=== PATIENT | male | born 1935 | race Caucasian/White ===

== ENCOUNTER → 2018-03-06 09:53 | Outpatient (CLI) | payer MEDICARE, OTHER, SELFPAY ==
--- NOTE | 2018-03-06 10:57 | DIET.PN ---
Met for initial nutrition consult per pt request Reports lost approx 9mo ago. Over last few years gained wt r/t changes in lifestyle. Has done food prep for years, so that did not change w/losing . Has started paying more attention to health and trying to improve. Wants to lose wt to gain better control of DM and other health issues. Has difficulty walking r/t PAD and pain in legs. Joined gym and working out there 3 times/week, in addition to working out on own on other days for 7 days/week total. Self monitors blood glucose. Reports levels are decreasing w/wt loss and increase exercise; AEB decreasing A1C Usual diet includes 2 meals plus small snack daily: Breakfast is either: scram egg sub, plain yogurt or oatmeal with berries and nuts Snack: piece of fruit, mostly melon Dinner: Seafood/steak/chicken with vegies. Vegies include a lot of non-starchy vegs, but does have regularly sweet potato and corn w/black beans blend. Admits Fritos are his downfall. 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 Has lost approx 12 lb for 1.5 lb/week, which is excellent especially at age of 82 yr. Current diet appears well balanced, moderate in carbs, low in sodium. INTERVENTION: Provided review of high carb foods for bg and calorie control; suggest tracking intake (already has a fitbit - just needs to figure out how to use the diet mode). Provided education on protein needs for wt resistence without excessive intake to avoid impact on CKD. GOAL/PLAN: Suggest pt continue current plan; perservere. Recommended protein intake (including protein supplement after workouts) 1.2g/kg of 92g daily. Continue to monitor labs. May call for F/U
== END ==
PROVIDERS: Family Provider Family Medicine; PCP Family Medicine; Visit Provider Family Medicine
DX: E66.9 Obesity, unspecified (principal); E11.9 Type 2 diabetes mellitus without complications; I10 Essential (primary) hypertension; I73.9 Peripheral vascular disease, unspecified; N18.9 Chronic kidney disease, unspecified
CPT/HCPCS: 97802

== ENCOUNTER → 2018-12-19 06:52 | Outpatient (CLI) | payer MEDICARE, OTHER, SELFPAY ==
--- NOTE | 2018-12-19 | DI.ECHO.S_ITS ---
[facility] +---------+ [facility] +---------+ : : [address] : [place] : : : : [id number] : : : : Phone: [phone] +---------+ Echocardiogram Report + + :Name: ALEJANDRA PENG Study Date: 12/19/2018 Height: 71 in : :[facility] Weight: 207 lb : : Gender: Male BSA: 2.1 m2 : :: 1935 Age: 83 yrs BP: 170/60 mmHg: :Reason For Study: Arrhythmia : : Performed By: Eli Silva : :Referring: DANA CHANG : + + Interpretation Summary -Indeterminate underlying rhythm, possibly sinus with PACs -Normal LV size and function without obvious wall motion abnormalities. -Normal RV size and function. -No significant valvular abnormalities. Comparison is made with the echocardiogram of 09-22-12. There is no significant change. Procedure: A two-dimensional transthoracic echocardiogram with color flow and Doppler was performed. The study quality was technically adequate. Comparison is made with the echocardiogram of 09-22-12. The heart rate ranged between 82-92 bpm during the study. Left Ventricle: The left ventricle is normal in size. Left ventricular wall thickness is at the upper limits of normal. The ejection fraction is estimated to be 60-65%. There are no obvious focal wall motion abnormalities noted but poor endocardial definition reduces the sensitivity for the detection of such. Diastolic parameters suggest a relaxation abnormality of the left ventricle, consistent with probable normal filling pressures. Right Ventricle: The right ventricle grossly appears normal in size with probable normal systolic function. Atria: The left atrium is moderately dilated. Right atrial size is normal. There is no Doppler evidence for an interatrial shunt. Mitral Valve: The mitral valve is grossly normal. There is mild to moderate mitral annular calcification. There is mild mitral regurgitation. Aortic Valve: The aortic valve is not well visualized. The aortic valve opens well. There is discrete nodular thickening of the non- coronary cusp. There is no aortic valve stenosis. There is trace aortic regurgitation. Tricuspid Valve: The tricuspid valve is normal in structure and function. There is trace tricuspid regurgitation. The right ventricular systolic pressure is estimated to be at least 27 mmHg based on an estimated right atrial pressure of 3 mm Hg. Pulmonic Valve: The pulmonic valve is not well seen, but is grossly normal. There is trace pulmonic regurgitation. Great Vessels: The aortic root is borderline dilated. The ascending aorta is mildly enlarged. The aortic arch could not be visualized. The IVC is of normal diameter and collapses greater than 50% with a sniff. This suggests a low right atrial pressure of 3 mm Hg. Pericardium/ Pleura There is no pericardial effusion. There has been no significant change since the previous study. MMode/2D Measurements & Calculations LVIDd: 5.6 cm Ao root diam: 3.7 cm LVIDs: 3.8 cm Aortic Jxn: 3.0 cm FS: 32.0 % asc Aorta Diam: 3.7 cm EPSS: 0.91 cm IVSd: 1.0 cm LVPWd: 1.1 cm LV stone. diameter/BSA (cm/m^2): 2.6 LV sys. diameter/BSA (cm/m^2): 1.8 LA dimension: 4.4 cm RA long axis: 5.2 cm LA A2 area: 29.2 cm2 RA area: 20.2 cm2 LA A4 area: 25.7 cm2 RA vol: 66.9 ml LA length (vol): 6.2 cm RA : 31.3 ml/m2 LA vol: 102.9 ml IVC diam: 1.5 cm LA vol index: 48.1 ml/m2 RVDd major: 5.7 cm RVD1 (basal): 3.9 cm RVD2 (mid): 2.9 cm Doppler Measurements & Calculations Ao V2 max: 141.1 cm/sec MV E max eduardo: 106.4 cm/sec Ao V2 mean: 97.8 cm/sec MV A max eduardo: 99.8 cm/sec Ao max P.0 mmHg MV E/A: 1.1 Ao mean P.4 mmHg Med Peak E' Eduardo: 4.5 cm/sec Ao V2 VTI: 32.0 cm E/E' med: 23.5 Lat Peak E' Eduardo: 6.9 cm/sec E/E' lat: 15.3 E/e' average: 19.4 MV dec time: 0.28 sec MR ERO: 0.13 cm2 TR max eduardo: 245.2 cm/sec MR flow rate: 63.7 cm3/sec TR max P.1 mmHg MR PISA radius: 0.51 cm PA V2 max: 105.1 cm/sec PA V2 mean: 70.4 cm/sec PA mean P.3 mmHg PA Accel Time: 0.21 sec Electronically signed by: Juan Motley M.D. on Reading Physician:12/20/2018 07:37 PM
== END ==
PROVIDERS: Family Provider Family Medicine; PCP Family Medicine; Visit Provider Family Medicine
DX: I34.0 Nonrheumatic mitral (valve) insufficiency (principal); I49.3 Ventricular premature depolarization
CPT/HCPCS: 93306

== ENCOUNTER 2019-02-11 10:00 | Outpatient (RCR) | payer MEDICARE, OTHER, SELFPAY | END 2019-02-24 11:57 | LOC: CAR 10:00 | PROVIDERS: Family Provider Family Medicine; PCP Family Medicine; Visit Provider Family Medicine | DX: I73.9 Peripheral vascular disease, unspecified (principal); I70.213 Atherosclerosis of native arteries of extremities with intermittent claudication, bilateral legs | CPT/HCPCS: 93668 ==

== ENCOUNTER → 2019-04-24 09:06 | Outpatient (CLI) | payer MEDICARE, OTHER, SELFPAY ==
--- NOTE | 2019-04-24 | DI.ECHO.S_ITS ---
[facility] +---------+ [facility] +---------+ : : [address] : [place] : : : : [id number] : : : : Phone: [phone] : : [phone] +---------+ Echocardiogram Report + + :Name: ALEJANDRA PENG Study Date: 04/24/2019 Height: 70 in : :[facility] Exam Location: [facility] Weight: 211 lb : : Gender: Male BSA: 2.1 m2 : :: 1935 Age: 83 yrs BP: 112/64 mmHg: :Reason For Study: VTACH : : Performed By: Jamar Ramirez : :Referring: PARAG GRIMM : + + Interpretation Summary 1) Normal left ventricular size with mildly-moderately reduced systolic function (EF 40-45%). 2) Global hypokinesis present. 3) Normal right ventricular size and function. 4) The left atrium is severely dilated. 5) There is mild to moderate mitral regurgitation. 6) Compared to the Echo done 12/19/2018, LVEF is reduced on this study as above. Procedure: A two-dimensional transthoracic echocardiogram with color flow and Doppler was performed. The study quality was technically adequate. Comparison is made with the echocardiogram of 12/19/18. The patient was in normal sinus rhythm during the exam. The patient had frequent PACs during the exam. Left Ventricle: The left ventricle is normal in size. There is normal left ventricular wall thickness. The ejection fraction is estimated to be 40-45%. Left ventricular systolic function is mild to moderately reduced. There is mild to moderate global hypokinesis of the left ventricle. Right Ventricle: The right ventricle is normal in size and function. Atria: The left atrium is severely dilated. Right atrial size is normal. The interatrial septum is intact with no evidence for an atrial septal defect. Mitral Valve: There is mild mitral annular calcification. The mitral valve leaflets are mildly calcified. There is mild to moderate mitral regurgitation. Aortic Valve: The aortic valve is trileaflet. The aortic valve is slightly calcified. There is no aortic valve stenosis. There is mild aortic regurgitation. Tricuspid Valve: The tricuspid valve is normal in structure and function. There is trace tricuspid regurgitation. Pulmonary artery pressures cannot be estimated because of the lack of a measurable TR jet velocity. Pulmonic Valve: The pulmonic valve is normal in structure and function. There is trace pulmonic regurgitation. Great Vessels: The aortic root is normal size. The dimensions of the ascending aorta are normal. The pulmonary artery is normal size. The IVC is of normal diameter and collapses greater than 50% with a sniff. This suggests a low right atrial pressure of 3 mm Hg. Pericardium/ Pleura There is no pericardial effusion. There is a moderate right-sided pleural effusion. MMode/2D Measurements & Calculations LVIDd: 5.1 cm LVOT diam: 2.3 cm LVIDs: 4.0 cm Ao root diam: 3.6 cm FS: 21.9 % Aortic Jxn: 2.7 cm EPSS: 1.4 cm asc Aorta Diam: 3.4 cm IVSd: 1.1 cm LVPWd: 1.1 cm LV stone. diameter/BSA (cm/m^2): 2.4 LV sys. diameter/BSA (cm/m^2): 1.9 LA A2 area: 27.0 cm2 RA long axis: 4.7 cm LA A4 area: 26.7 cm2 RA area: 19.3 cm2 LA length (vol): 5.6 cm RA vol: 67.1 ml LA vol: 109.4 ml RA : 31.4 ml/m2 LA vol index: 51.2 ml/m2 IVC diam: 2.0 cm Doppler Measurements & Calculations Ao V2 max: 116.1 cm/sec LVOT Max Eduardo: 79.5 cm/sec Ao V2 mean: 92.3 cm/sec LV V1 max P.5 mmHg Ao max P.4 mmHg LV V1 VTI: 17.0 cm Ao mean P.5 mmHg MORENA(I,D): 2.5 cm2 Ao V2 VTI: 27.7 cm MORENA(V,D): 2.8 cm2 sev ratio: 0.61 MORENA indexed to BSA (cm^2/m^2): 1.2 MV E max eduardo: 109.9 cm/sec PA V2 max: 85.7 cm/sec MV A max eduardo: 78.1 cm/sec PA V2 mean: 67.8 cm/sec MV E/A: 1.4 PA mean P.8 mmHg Med Peak E' Eduardo: 4.3 cm/sec PA pr(Accel): 49.1 mmHg E/E' med: 25.3 PA Accel Time: 0.07 sec Lat Peak E' Eduardo: 6.6 cm/sec E/E' lat: 16.6 E/e' average: 21.0 MV dec time: 0.14 sec SV(LVOT): 69.4 ml Reading Physician:12:53 PM
--- NOTE | 2019-04-24 | DI.NM.S_ITS ---
PROCEDURE: NM REUBEN PERF SPECT REST & STR Rest and exercise myocardial perfusion SPECT with gated imaging and ejection fraction RADIOPHARMACEUTICAL: 10.6 mCi Tc-99m sestamibi IV at rest and 24.6 mCi Tc-99m sestamibi IV at peak exercise. A one day-protocol was performed. INDICATIONS: Ventricular Tachycardia TECHNIQUE: Radiopharmaceutical was injected at peak stress test, and also at rest. SPECT images were obtained. SPECT myocardial perfusion images were displayed in short axis, horizontal long axis, and vertical long axis views. Gated images were reviewed using [employer] software. COMPARISON: None. CARDIAC STRESS: A standard [place] treadmill exercise tolerance test was performed by the patient under the supervision of an attending staff. The patient exercised for 3 minutes and 5 seconds; functional aerobic impairment (ABRAHAM) is +30% on sedentary scale. Hemodynamic data: There is normal blood pressure and heart rate response to exercise stress. Patient achieved 136% of maximum predicted heart rate at peak exercise. Symptoms: Patient denied chest pain during exercise. Dyspnea with exercise, especially with atrial tachcyardia. EKG: Sinus rhythm with mild ST depressions in the inferior leads at rest. No diagnostic EKG changes of ischemia with exercise. Frequent PACs including atrial tachycardia at peak exercise and during recovery. FINDINGS: Raw data: There is good myocardial labeling by radiotracer. No significant motion artifacts. Illi-qh-pjgds ratio is 0.34 (normal is less than 0.38 for sestamibi tracer, and less than 0.50 for thallium tracer). Left ventricle function: Gated images demonstrate global hypokineiss. No transient ischemic dilation; TID is 1.2 (normal less than 1.3). The left ventricle resting end-diastolic volume is 188 mL. Left ventricle stress ejection fraction is 39%; normal values are above 45%. Myocardial perfusion: There is fixed inferior wall defect that could be prior non-transmural infarction or diaphragmatic attenuation. Small mildly intense reversible defect at the apex that is consistent with ischemia. No prone images done. IMPRESSION: Abnormal nuclear stress test consistent with apical ischemia and infarct vs artifact in the inferior wall. 1) There is fixed inferior wall defect that could be prior non-transmural infarction or diaphragmatic attenuation. Small mildly intense reversible defect at the apex that is consistent with ischemia. No prone images done. SSS 2. SRS 0. 2) Enlarged left ventricle (rest EDV 188cc) with moderately reduced function (EF post stres 39%). Global hypokinesis present. 3) No angina during the study. Dyspnea noted with atrial tachcyardia. 4) No diagnostic ECG evidence of ischemia. Frequent PACs including atrial tachycardia at peak exercise and during recovery. 5) Reduce exercise tolerance (4.6 METs, ABRAHAM +30% on sedentary scale). Target heart rate achieved. 6) Hypertension at rest (BP 160/80mmHg). 7) No prior nuclear stress test available for comparison Dictated by: Emelia Grimm MD on 04/24/2019 at 16:09 Approved by: Emelia Grimm MD on 04/24/2019 at 16:16
--- NOTE | 2019-04-24 15:00 | PM.TREADMILL ---
Cardiac Stress Test Report Referral & Results Date Patient Seen: 04/24/19 Requesting provider: Emelia Grimm Indication: Nonsustained ventricular tachycardia SVT Rest ECG: Unremarkable Procedure Note: Today following both written and verbal informed consent the patient was exercised according to a standard [place] protocol patient went for a total of 3 minutes 5 seconds achieving a maximum heart rate of 185 (during a run of SVT) maximum systolic blood pressure of 180. This is approximately 4.6 METS. Exercise was terminated at this point because of targets were met. Patient was also given Cardiolite through a previously started Hep-Lock IV by the diagnostic imaging staff approximately 1 minute prior to the cessation of exercise. There are no ST-T segment changes Functional aerobic impairment rated about 30% of the sedentary scale In recovery patient went into supraventricular tachycardia with heart rate of about 180 over and over and over and over again. Was able to abort with Valsalva maneuver and eventually as underlying sinus heart rate reduced this gradually disappeared He was dyspneic with his SVT but otherwise asymptomatic Occasional PVC noted as well Impression: SVT No evidence of ischemia Please see perfusion imaging for further details regarding possible ischemia Please note: Actual ECG tracings can be found in the PACS system.
== END ==
PROVIDERS: Family Provider Family Medicine; PCP Family Medicine; Visit Provider Internal Medicine Cardiovascular Disease
DX: I47.2 Ventricular tachycardia (principal); I10 Essential (primary) hypertension
CPT/HCPCS: 78452; 93016; 93017; 93018; 93306; A9502

== ENCOUNTER → 2019-05-01 10:26 | Outpatient (CLI) | payer MEDICARE, OTHER, SELFPAY ==
--- NOTE | 2019-05-01 | DI.RAD.S_ITS ---
PROCEDURE: XR CHEST 2V INDICATIONS: SHORTNESS OF BREATH TECHNIQUE: 2 views of the chest were acquired. COMPARISON: [facility], , CHEST 2 VIEW, 04/04/2016, 9:51. FINDINGS: Surgical changes and devices: None. Lungs and pleura: Lungs are moderately edematous. There are bilateral subpulmonic pleural effusions and no pneumothorax. Mediastinum: Mediastinal contours are normal. Heart size is at upper limits of normal. Bones and chest wall: No suspicious bony abnormalities. Soft tissues appear unremarkable. IMPRESSION: Generalized moderate pulmonary edema, bilateral small to moderate-sized subpulmonic pleural effusions slightly greater on the right than the left. Dictated by: Jin Solomon M.D. on 05/01/2019 at 11:08 Approved by: Jin Solomon M.D. on 05/01/2019 at 11:09
== END ==
PROVIDERS: PCP Family Medicine; Visit Provider Family Medicine
DX: R06.02 Shortness of breath (principal); J81.1 Chronic pulmonary edema; J90 Pleural effusion, not elsewhere classified
CPT/HCPCS: 71046

== ENCOUNTER → 2019-05-22 09:04 | Outpatient (CLI) | payer MEDICARE, OTHER, SELFPAY ==
--- NOTE | 2019-06-01 11:16 | PM.PFT.1 ---
Pulmonary Function Test Referral & Results Date Patient Seen: 05/22/19 Requesting provider: Alee Castillo Indication: Shortness of breath Results: The spirometry demonstrates an FVC of 2.08 L which is 49% of predicted. The FEV1 was measured at 1.57 L which is 53% of predicted. The FEV1/FVC ratio was 76 which is 106% of predicted. Following the administration of bronchodilator there was 11% improvement in FEV1 and a 69% improvement in FEF 25-75%. Lung volumes show an SVC of 2.23 L which is 48% of predicted. The diffusing capacity was measured at 15.5 a which is 44% of predicted. The maximum voluntary ventilation was reduced Interpretation: This study demonstrates severe obstructive lung disease with evidence of some benefit following bronchodilator particularly small airway flow based on improvement in FEF 25-75% There is also severe restrictive lung disease present based on significant reduction in SVC There is also severe reduction in diffusing capacity suggesting significant disease at the capillary alveolar level
== END ==
PROVIDERS: PCP Family Medicine; Visit Provider Family Medicine
DX: R06.02 Shortness of breath (principal); J44.9 Chronic obstructive pulmonary disease, unspecified
CPT/HCPCS: 94060; 94726; 94729

== ENCOUNTER → 2019-11-13 09:16 | Outpatient (CLI) | payer MEDICARE, OTHER, SELFPAY ==
--- NOTE | 2019-11-13 | DI.RAD.S_ITS ---
PROCEDURE: XR CHEST 2V INDICATIONS: Shortness of breath TECHNIQUE: 2 views of the chest were acquired. COMPARISON: [facility], , XR CHEST 2V, 05/01/2019, 10:31. [facility], , CHEST 2 VIEW, 04/04/2016, 9:51. FINDINGS: Surgical changes and devices: None. Lungs and pleura: Lungs are abnormal, with a pneumonia pattern of the right lung base, and a small subpulmonic pleural effusion. No pneumothorax. Mediastinum: Mediastinal contours are normal. Heart size is normal. Bones and chest wall: No suspicious bony abnormalities. Soft tissues appear unremarkable. IMPRESSION: Right lower lobe pneumonia with a subpulmonic right pleural effusion. Large lung volumes, suspect COPD. Dictated by: Jin Solomon M.D. on 11/13/2019 at 9:52 Approved by: Jin Solomon M.D. on 11/13/2019 at 9:53
== END ==
PROVIDERS: PCP Family Medicine; Referring Provider Family Medicine; Visit Provider Family Medicine
DX: J18.9 Pneumonia, unspecified organism (principal); J90 Pleural effusion, not elsewhere classified; R06.02 Shortness of breath
CPT/HCPCS: 71046

== ENCOUNTER → 2020-01-22 12:22 | Outpatient (CLI) | payer MEDICARE, OTHER, SELFPAY ==
--- NOTE | 2020-01-22 | DI.RAD.S_ITS ---
PROCEDURE: XR CHEST 2V INDICATIONS: SHORTNESS OF BREATH,CARDIOMYOPATHY TECHNIQUE: 2 views of the chest were acquired. COMPARISON: [facility], CR, XR CHEST 2V, 11/13/2019, 8:18. [facility], CR, XR CHEST 2V, 05/01/2019, 10:31. FINDINGS: Surgical changes and devices: None. Lungs and pleura: Lungs are again seen to be abnormal with a mild pulmonary edema pattern. No increase in right subpulmonic pleural effusion, very slight left-sided pleural effusion appears present on the lateral view. Mediastinum: Mediastinal contours are normal. Heart size is mildly enlarged. Bones and chest wall: No suspicious bony abnormalities. Soft tissues appear unremarkable. IMPRESSION: Mild cardiomegaly, mild chronic CHF. Subpulmonic right pleural effusion is mild to moderate, slight left subpulmonic pleural effusion is noted. Mild cardiomegaly. Dictated by: Jin Solomon M.D. on 01/22/2020 at 14:25 Approved by: Jin Solomon M.D. on 01/22/2020 at 14:27
== END ==
PROVIDERS: PCP Family Medicine; Referring Provider Family Medicine; Visit Provider Family Medicine
DX: R06.02 Shortness of breath (principal); I42.9 Cardiomyopathy, unspecified; I50.9 Heart failure, unspecified
CPT/HCPCS: 71046

== ENCOUNTER → 2020-02-01 14:40 | Outpatient (CLI) | payer MEDICARE, OTHER, SELFPAY ==
--- NOTE | 2020-02-01 | DI.ECHO.S_ITS ---
[facility] +---------+ [facility] +---------+ : : [address] : [place] : : : : [phone] : : : : Phone: [phone] : : [phone] +---------+ Echocardiogram Report + + :Name: ALEJANDRA PENG Study Date: 02/01/2020 Height: 71 in : :[facility] Weight: 200 lb : : Gender: Male BSA: 2.1 m2 : :: 1935 Age: 84 yrs BP: 122/58 mmHg: :Reason For Study: Cardiomyopathy : :Ordering Physician: Parag Amor : :Sirisha Performed By: Debora Villegas : :Referring: PARAG GRIMM : + + Interpretation Summary 1) Normal left ventricular size with mildly reduced systolic function (EF 45- 50%). 2) Global hypokinesis present. 3) Mildly enlarged right ventricle with normal function. 4) The left atrium is severely dilated. 5) There is mild to moderate mitral regurgitation. 6) Compared to the Echo done 04/24/2019, LVEF has improved slightly from 40-45% to 45-50% on this study. Procedure: A two-dimensional transthoracic echocardiogram with color flow and Doppler was performed. The study quality was technically adequate. Comparison is made with the echocardiogram of 04/24/2019. The patient was in normal sinus rhythm during the exam. The patient had frequent PACs during the exam. The patient had occasional PVCs during the exam. Left Ventricle: The left ventricle is normal in size. There is mild-moderate concentric left ventricular hypertrophy. Left ventricular global longitudinal strain average is -15.3%. The ejection fraction is estimated to be 45-50%. Left ventricular systolic function is mildly reduced. There is mild global hypokinesis of the left ventricle. Right Ventricle: The right ventricle is mildly dilated. The right ventricular systolic function is normal. Atria: The left atrium is moderately dilated. The right atrium is normal in size. There is no Doppler evidence for an interatrial shunt. Mitral Valve: The mitral valve is normal in structure and function. There is mild mitral annular calcification. There is mild to moderate mitral regurgitation. Aortic Valve: The aortic valve is trileaflet. The aortic valve opens well. There is no aortic valve stenosis. There is trace aortic regurgitation. Tricuspid Valve: The tricuspid valve is normal in structure and function. There is mild tricuspid regurgitation. Pulmonic Valve: The pulmonic valve is not well visualized. The pulmonic valve is not well seen, but is grossly normal. There is trace pulmonic regurgitation. Great Vessels: The aortic root is normal size. The dimensions of the ascending aorta are normal. The IVC is of normal diameter and collapses greater than 50% with a sniff. This suggests a low right atrial pressure of 3 mm Hg. Pericardium/ Pleura There is no pericardial effusion. There is no pleural effusion. MMode/2D Measurements & Calculations LVIDd: 5.3 cm LVOT diam: 2.0 cm LVIDs: 4.1 cm Ao root diam: 3.5 cm FS: 22.6 % asc Aorta Diam: 3.1 cm EPSS: 1.4 cm IVSd: 1.3 cm LVPWd: 1.4 cm LV stone. diameter/BSA (cm/m^2): 2.5 LV sys. diameter/BSA (cm/m^2): 2.0 LA A2 area: 27.8 cm2 RA long axis: 4.8 cm LA A4 area: 21.3 cm2 RA area: 17.8 cm2 LA length (vol): 5.2 cm RA vol: 55.4 ml LA vol: 96.3 ml RA : 26.3 ml/m2 LA vol index: 45.7 ml/m2 IVC diam: 1.3 cm RVD1 (basal): 4.5 cm TAPSE: 2.1 cm Doppler Measurements & Calculations Ao V2 max: 122.9 cm/sec LVOT Max Eduardo: 78.9 cm/sec Ao V2 mean: 89.7 cm/sec LV V1 max P.5 mmHg Ao max P.0 mmHg LV V1 VTI: 20.6 cm Ao mean P.5 mmHg MORENA(V,D): 2.0 cm2 MV E max eduardo: 94.3 cm/sec TR max eduardo: 297.5 cm/sec MV A max eduardo: 85.6 cm/sec TR max P.4 mmHg MV E/A: 1.1 Med Peak E' Eduardo: 5.0 cm/sec E/E' med: 18.8 Lat Peak E' Eduardo: 7.5 cm/sec E/E' lat: 12.6 E/e' average: 15.7 MV dec time: 0.24 sec MR ERO: 0.23 cm2 MR PISA: 3.0 cm2 SV(LVOT): 63.5 ml MR flow rate: 128.0 cm3/sec MR PISA radius: 0.70 cm Reading Physician:02:07 PM
[2020-02-02 11:06] LABS: COVID19 Sendout Not Detected (Not Detect)
== END ==
PROVIDERS: Registered Nurse; PCP Family Medicine; Referring Provider Internal Medicine Cardiovascular Disease; Visit Provider Internal Medicine Cardiovascular Disease
DX: Z11.59 Encounter for screening for other viral diseases (principal); Z01.812 Encounter for preprocedural laboratory examination; I08.1 Rheumatic disorders of both mitral and tricuspid valves; I42.8 Other cardiomyopathies
CPT/HCPCS: 87635; 93306

== ENCOUNTER → 2020-02-04 09:56 | Outpatient (CLI) | payer MEDICARE, OTHER, SELFPAY ==
--- NOTE | 2020-02-12 16:16 | PM.PFT.1 ---
Pulmonary Function Test Referral & Results Date Patient Seen: 02/04/20 Requesting provider: Alee Castillo Results: The spirometry demonstrates an FVC of 1.33 L which is 31% of predicted. The FEV1 was measured at 1.05 L which is 36% of predicted. The FEV1/FVC ratio was 80 which is 112% of predicted. Following the administration of bronchodilator there was a 50% improvement in FEV1 and a 92% improvement in FEF 25-75%. Lung volumes show an SVC of 4.65 L which is 100% of predicted. The diffusing capacity was measured at 10.83 which is 30% of predicted. No hemoglobin value was provided, so no correction for potential anemia could be made, if appropriate. The maximum voluntary ventilation was reduced Interpretation: This study demonstrates severe obstructive lung disease based on severe reduction in FEV1. There is evidence of some benefit following bronchodilator based on improvement in FEV1 and FEF 25-75% Patient's lung volumes are normal There is also severe reduction in diffusing capacity suggesting significant disease at the capillary alveolar level to the point where patient may well be hypoxic at times on room air Compared to PFTs performed in May 2019, current study shows further reduction in FEV1 as well as diffusing capacity. Patient's lung volumes on previous examination were approximately 50% of normal and 100% normal on this exam which is difficult to explain Clinical correlation suggested
== END ==
PROVIDERS: PCP Family Medicine; Referring Provider Family Medicine; Visit Provider Family Medicine
DX: J44.9 Chronic obstructive pulmonary disease, unspecified (principal); R06.02 Shortness of breath; Z87.891 Personal history of nicotine dependence
CPT/HCPCS: 94060; 94664; 94726; 94729

== ENCOUNTER → 2020-03-06 09:03 | Outpatient (CLI) | payer MEDICARE, OTHER, SELFPAY ==
[2020-03-07 08:40] LABS: COVID19 Sendout Not detected (Not Detect)
== END ==
PROVIDERS: PCP Family Medicine; Visit Provider Nurse Practitioner
DX: Z01.812 Encounter for preprocedural laboratory examination (principal)
CPT/HCPCS: 87635

== ENCOUNTER 2020-03-17 15:06 | Emergency (ER) | payer MEDICARE, OTHER, SELFPAY ==
[2020-03-17] VITALS (14 sets, daily range): BP systolic 93–112; BP diastolic 57–79; PULSE 132–137; RESP 0–28; TEMP 36.1; O2SAT 93–99; BMI 25.7
--- NOTE | 2020-03-17 15:26 | DI.RAD.S_ITS ---
PROCEDURE: XR CHEST 1V INDICATIONS: SOB TECHNIQUE: One view of the chest was acquired. COMPARISON: [facility], CR, XR CHEST 2V, 01/22/2020, 12:48. [facility], CR, XR CHEST 2V, 11/13/2019, 8:18. FINDINGS: Surgical changes and devices: None. Lungs and pleura: Lungs are abnormal, with generalized pulmonary edema that is more prominent than that seen in December of this year and also october.. No pleural effusions or pneumothorax. Mediastinum: Mediastinal contours appear normal. Heart size is locally enlarged, and there appears to be bilateral subpulmonic pleural effusions greater on the right than the left.. Bones and chest wall: No suspicious bony lesions. Overlying soft tissues appear unremarkable. IMPRESSION: Acute exacerbation of chronic CHF, bilateral probable subpulmonic pleural effusions. Right greater than left airspace opacification is present and as result focal pneumonia could be present at the right mid and lower lung. Dictated by: Jin Solomon M.D. on 03/17/2020 at 16:07 Approved by: Jin Solomon M.D. on 03/17/2020 at 16:09
[2020-03-17 15:32] LABS: Add Manual Diff / Slide Review NO; Basophils Absolute Auto 0 /uL (0-100); Basophils Percent Auto 0.8 % (0-2); Eosinophils Absolute Auto 100 /uL (0-450); Eosinophils Percent Auto 1.7 % (2-4); Hematocrit 29.8 % (41-53); Hemoglobin 9.4 g/dL (13.5-17.5); Lymphocytes Absolute Auto 800 /uL (1100-4500); Lymphocytes Percent Auto 13.4 % (25-40); Mean Corpuscular HGB Conc 31.5 % (30-36); Mean Corpuscular Hemoglobin 26.9 PG (26-34); Mean Corpuscular Volume 85.4 fL (80-100); Monocytes Absolute Auto 600 /uL (0-900); Monocytes Percent Auto 9.4 % (3-14); Neutrophils Absolute Auto 4500 /uL (1500-7000); Neutrophils Percent Auto 74.7 % (50-75); Platelet Count 217 X10^3/uL (150-400); Red Blood Cell Count 3.48 X10^6/uL (4.5-5.9); Red Cell Distribution Width 15.7 % (11.6-14.8)
[2020-03-17 15:33] LABS: INR 1.1 (0.9-1.3); Prothrombin Time 13.1 SECONDS (10.1-12.7)
[2020-03-17 15:36] LABS: PTT Partial Thromboplastin Tim 31 SECONDS (26.4-36.2)
[2020-03-17 15:43] LABS: Alanine Aminotransferase 25 IU/L (<50); Albumin 3.2 g/dL (3.5-5.0); Albumin Globulin Ratio 1.2 (1.0-2.8); Alkaline Phosphatase 84 U/L (38-126); Aspartate Aminotransferase 38 IU/L (17-59); BUN Creatinine Ratio 30.5 (6-22); Bilirubin Total 0.4 mg/dL (0.2-1.3); Blood Urea Nitrogen 67 mg/dL (9-20); Calcium 8.9 mg/dL (8.4-10.2); Carbon Dioxide 26 mmol/L (22-32); Chloride 105 mmol/L (98-107); Creatine Kinase 88 U/L (55-170); Estimated Glomerular Filt Rate 28.6 mL/min (>60); Globulin 2.7 g/dL (1.7-4.1); Glucose 150 mg/dL (80-110); HEMOLYSIS < 15 (0-50); Lipase 17 U/L (23-300); Sodium 138 mmol/L (137-145); Total Protein 5.9 g/dL (6.3-8.2)
[2020-03-17 15:54] LABS: NT-proBNP (BNP-Adult 18+) 10900 pg/mL (<450)
--- NOTE | 2020-03-17 15:55 | ED.GENADULT ---
HPI - General Adult General Chief complaint: Shortness of Breath/Dyspnea Stated complaint: Have a Breathing Problem and a Heart Problem Time Seen by Provider: 03/17/20 15:16 Source: patient Mode of arrival: Wheelchair Limitations: physical limitation History of Present Illness HPI narrative: 84-year-old male who arrives the emergency department by private vehicle for evaluation of a worsening shortness of breath. Patient states that last week he was sent to the [facility] for high risk cardiac catheterization. He did have 3 stents placed. He was discharged on of last week. He states he does not remember any prior diagnosis of heart failure. He is on Lasix. He is unsure if he is on 20 mg a day or 40 mg a day. He states that since he has been discharged from the hospital he has had progressively worsening shortness of breath. He denies any chest pain. He states that he has never had any chest pain. He is having lower extremity swelling. He states the reason he is here is because over the past 4 nights he has not got any sleep because he cannot lay flat and is waking up gasping for air. He also states that he has been checking his pulse rate at home. He states that his pulse rate has been anywhere from 115 up into the 180s. He states that most that time his heart rate has been in the 130's. During this time he denies any palpitations or shortness of breath or lightheadedness. He states that he has been taking the medications that he was instructed to take. Related Data Home Medications Medication Instructions Recorded Confirmed ASCORBIC ACID (VITAMIN C) 100 mg PO Q DAY #0 03/13/13 05/14/18 CA PANTOTHENATE/FOLIC ACID/VIT 1 tab PO QDAY #0 03/13/13 05/14/18 (MULTIVITAMIN) CHOLECALCIFEROL (VITAMIN D) 2,000 iu PO BID #0 03/13/13 05/14/18 CYANOCOBALAMIN (VITAMIN B-12) 1,000 mcg PO Q DAY #0 03/13/13 05/14/18 (Vitamin B-12) FERROUS SULFATE 325 mg PO BID #0 03/13/13 05/14/18 VITAMIN E (#HOLGUIN-E) 200 iu PO Q DAY #0 03/13/13 05/14/18 aspirin 81 mg PO QDAY #0 03/13/13 05/14/18 folic acid 1 mg PO QDAY #0 03/13/13 05/14/18 insulin glargine [Lantus U-100 8 unit SQ HS #0 03/13/13 05/14/18 Insulin] lisinopril 30 mg PO QDAY #0 03/13/13 05/14/18 metformin [Glucophage XR] 1,000 mg PO BID #0 03/13/13 05/14/18 simvastatin 10 mg PO HS #0 03/13/13 05/14/18 tamsulosin [Flomax] 0.4 mg PO QDAY #0 03/13/13 05/14/18 glipizide 5 mg tablet 10 mg PO BID 05/14/18 05/14/18 magnesium citrate 100 mg tablet 100 mg PO DAILY tab 05/14/18 05/14/18 Allergies Allergy/AdvReac Type Severity Reaction Status Date / Time Penicillins [PENICILLINS] Allergy Unknown Verified 03/17/20 15:19 shingles vaccine Allergy Swelling Uncoded 03/06/20 09:23 face, anaphylaxis Review of Systems Constitutional Constitutional: Denies fatigue, Denies fever(s), Denies frequent falls and Denies headache(s) ENT Ears, Nose, Mouth, and Throat: Denies vertigo and Denies headache(s) Cardiovascular Cardiovascular: Denies chest pain, Denies syncope, Denies rapid heart rate, Reports pedal edema and Reports dyspnea Respiratory Respiratory: Denies cough and Reports dyspnea Gastrointestinal Gastrointestinal: Denies abdominal pain, Denies change in bowel habits, Denies diarrhea, Denies nausea and Denies vomiting Genitourinary Genitourinary: Denies dysuria Genitourinary: Denies dysuria Musculoskeletal Musculoskeletal: Denies arthralgias and Denies myalgias Integumentary/Breasts Skin/Breast: Denies lesions and Denies rash Neurologic Neurologic: Denies confusion, Denies vertigo, Denies syncope, Denies frequent falls and Denies headache(s) Psychiatric Psychiatric: Denies confusion Endocrine Endocrine: Denies fatigue Hematologic/Lymphatic Hematologic/Lymphatic: Denies easy bleeding and Denies easy bruising Allergic/Immunologic Allergic/Immunologic: Denies urticaria Patient History Medical History Diabetes (Chronic) Dysplastic colon polyp (Acute) HTN (hypertension) (Chronic) Incisional hernia (Acute) Peripheral arterial disease (Acute) Surgical History (Updated 05/14/18 @ 13:10 by Randall Aceves MD) History of colonoscopy (Acute) History of right-sided carotid endarterectomy (Acute) S/P right colectomy (Acute) Social History household members: none Smoking Status: Never smoker alcohol intake: never substance use type: does not use Smoking Status: Never smoker alcohol intake frequency: other Substance Use Type: does not use Exam Initial Vital Signs Initial Vital Signs: Vital Signs Temperature 96.9 F L 03/17/20 15:09 Pulse Rate 132 H 03/17/20 15:09 Respiratory Rate 28 H 03/17/20 15:09 Blood Pressure 112/79 03/17/20 15:09 Pulse Oximetry 99 03/17/20 15:09 Const General: cooperative and comfortable Limitations: mental status not altered HENMT Head: normal to inspection and normocephalic Resp Effort & Inspection: normal respiratory effort, not labored, no retractions and not tachypneic Cardio Rate: tachycardic Rhythm: regular rhythm Pulses: radial pulses not present GI Inspection: non-distended Palpation: soft, No firm and No tender Skin Lesions: no lesions Rashes: no rashes Neuro General: patient alert, patient awake and patient oriented x3 Extrem General: normal to inspection, capillary refill normal and edema Psych Appearance: grossly normal and well kempt Scores GCS [place] coma scale eye opening: Spontaneous [place] coma scale verbal response: Orientated [place] coma scale motor response: Obey commands [place] coma scale total score: 15 Course Orders Ordered: ED Orders 03/17/20 15:16 Complete Blood Count AUTO DIFF Stat Comprehensive Metabolic Panel Stat Lipase Stat NT-proBNP (BNP-Adult 18+) Stat Partial Thromboplastin Time Stat Procalcitonin Stat Prothrombin Time INR Stat Troponin & CK Cardiac Panel Stat 03/17/20 15:26 XR chest 1V Stat EKG-12 Lead Routine EKG-12 Lead Stat Discontinued Medications Furosemide (Lasix) 40 mg IV NOW ONE Stop: 03/17/20 16:29 Last Admin: 03/17/20 16:45 Dose: 40 mg Documented by: LOBITO Vital Signs Vital signs: Vital Signs - 8 hr 03/17/20 15:09 03/17/20 15:14 03/17/20 15:30 Temperature 96.9 F L Pulse Rate 132 H 134 H Respiratory Rate 28 H 25 H Blood Pressure 112/79 112/79 Pulse Oximetry 99 96 03/17/20 16:00 03/17/20 16:30 03/17/20 17:00 Temperature Pulse Rate 135 H 135 H 135 H Respiratory Rate 25 H 21 0 L Blood Pressure Pulse Oximetry 95 95 95 03/17/20 17:30 03/17/20 18:00 03/17/20 18:30 Temperature Pulse Rate 134 H 134 H 135 H Respiratory Rate 15 21 19 Blood Pressure Pulse Oximetry 95 96 93 Medical Decision Making Lab Data Lab results reviewed: Yes I reviewed the patient's lab results. Result diagrams: 03/17/20 15:16 03/17/20 15:16 Labs: Lab Results 03/17/20 03/17/20 03/17/20 Range/Units 15:16 15:16 15:16 WBC 6.0 (4.5-11.0) X10^3/uL RBC 3.48 L (4.5-5.9) X10^6/uL Hgb 9.4 L (13.5-17.5) g/dL Hct 29.8 L (41-53) % MCV 85.4 (80-100) fL MCH 26.9 (26-34) PG MCHC 31.5 (30-36) % RDW 15.7 H (11.6-14.8) % Plt Count 217 (150-400) X10^3/uL Neut % (Auto) 74.7 (50-75) % Lymph % (Auto) 13.4 L (25-40) % [place] % (Auto) 9.4 (3-14) % Eos % (Auto) 1.7 L (2-4) % Baso % (Auto) 0.8 (0-2) % Neut # (Auto) 4500 (8979-1817) /uL Lymph # (Auto) 800 L (4480-4335) /uL [place] # (Auto) 600 (0-900) /uL Eos # (Auto) 100 (0-450) /uL Baso # (Auto) 0 (0-100) /uL PT 13.1 H (10.1-12.7) SECONDS INR 1.1 (0.9-1.3) APTT 31 (26.4-36.2) SECONDS Sodium 138 (137-145) mmol/L Potassium 5.0 (3.4-5.1) mmol/L Chloride 105 (98-107) mmol/L Carbon Dioxide 26 (22-32) mmol/L BUN 67 H (9-20) mg/dL Creatinine 2.20 H (0.66-1.25) mg/dL Estimated GFR 28.6 L (>60) mL/min BUN/Creatinine Ratio 30.5 H (6-22) Glucose 150 H (80-110) mg/dL Calcium 8.9 (8.4-10.2) mg/dL Total Bilirubin 0.4 (0.2-1.3) mg/dL AST 38 (17-59) IU/L ALT 25 (<50) IU/L Alkaline Phosphatase 84 (38-126) U/L Total Creatine Kinase 88 (55-170) U/L CK-MB (CK-2) TNP CK-MB (CK-2) Rel Index TNP Troponin I 1.030 H* (0.01-0.034) ng/mL NT-Pro-B Natriuret Pep 87810 H (<450) pg/mL Total Protein 5.9 L (6.3-8.2) g/dL Albumin 3.2 L (3.5-5.0) g/dL Globulin 2.7 (1.7-4.1) g/dL Albumin/Globulin Ratio 1.2 (1.0-2.8) Lipase 17 L (23-300) U/L Procalcitonin (<0.5) ng/mL 03/17/20 Range/Units 15:16 WBC (4.5-11.0) X10^3/uL RBC (4.5-5.9) X10^6/uL Hgb (13.5-17.5) g/dL Hct (41-53) % MCV (80-100) fL MCH (26-34) PG MCHC (30-36) % RDW (11.6-14.8) % Plt Count (150-400) X10^3/uL Neut % (Auto) (50-75) % Lymph % (Auto) (25-40) % [place] % (Auto) (3-14) % Eos % (Auto) (2-4) % Baso % (Auto) (0-2) % Neut # (Auto) (6509-4335) /uL Lymph # (Auto) (3247-2871) /uL [place] # (Auto) (0-900) /uL Eos # (Auto) (0-450) /uL Baso # (Auto) (0-100) /uL PT (10.1-12.7) SECONDS INR (0.9-1.3) APTT (26.4-36.2) SECONDS Sodium (137-145) mmol/L Potassium (3.4-5.1) mmol/L Chloride (98-107) mmol/L Carbon Dioxide (22-32) mmol/L BUN (9-20) mg/dL Creatinine (0.66-1.25) mg/dL Estimated GFR (>60) mL/min BUN/Creatinine Ratio (6-22) Glucose (80-110) mg/dL Calcium (8.4-10.2) mg/dL Total Bilirubin (0.2-1.3) mg/dL AST (17-59) IU/L ALT (<50) IU/L Alkaline Phosphatase (38-126) U/L Total Creatine Kinase (55-170) U/L CK-MB (CK-2) CK-MB (CK-2) Rel Index Troponin I (0.01-0.034) ng/mL NT-Pro-B Natriuret Pep (<450) pg/mL Total Protein (6.3-8.2) g/dL Albumin (3.5-5.0) g/dL Globulin (1.7-4.1) g/dL Albumin/Globulin Ratio (1.0-2.8) Lipase (23-300) U/L Procalcitonin < 0.05 (<0.5) ng/mL Imaging Data Chest x-ray: Radiologist's Impression: [address] [address] XRay Report Signed Patient: Juan De Los Santos LMR#: [id number] : 4Acct:[id number] Age/Sex: 84 / MDate of Service: 03/17/20 Loc: ED Accession Number: [id number] Procedure: XR chest 1V Ordering Provider: Dedrick Cash D.O. PROCEDURE: XR CHEST 1V INDICATIONS: SOB TECHNIQUE: One view of the chest was acquired. COMPARISON: [facility], CR, XR CHEST 2V, 01/22/2020, 12:48. [facility], CR, XR CHEST 2V, 11/13/2019, 8:18. FINDINGS: Surgical changes and devices: None. Lungs and pleura: Lungs are abnormal, with generalized pulmonary edema that is more prominent than that seen in December of this year and also october.. No pleural effusions or pneumothorax. Mediastinum: Mediastinal contours appear normal. Heart size is locally enlarged, and there appears to be bilateral subpulmonic pleural effusions greater on the right than the left.. Bones and chest wall: No suspicious bony lesions. Overlying soft tissues appear unremarkable. IMPRESSION: Acute exacerbation of chronic CHF, bilateral probable subpulmonic pleural effusions. Right greater than left airspace opacification is present and as result focal pneumonia could be present at the right mid and lower lung. Dictated by: Jin Solomon M.D. on 03/17/2020 at 16:07 Approved by: Jin Solomon M.D. on 03/17/2020 at 16:09 ECG Data Attestation: I personally reviewed and interpreted this ECG as follows: Prior ECG tracings: not available for review Interpretation: Sinus tachycardia Ventricular rate of 135 Normal axis [address] depressions V2 V3 V[address] elevations MDM Narrative Medical decision making narrative: Patient is calm. Not hypo/hypertensive. Not in any respiratory distress. Chest x-ray shows fluid overload. He does have lower extremity swelling. Is tachycardic on his EKG however does a sinus tachycardia. Had a long discussion with the patient's interventionalist at the [facility] who stated that despite their intervention down there he still does have cardiovascular disease. She stated that his RCA showed disease however there was no stents placed. A little unsure exactly what dose of Lasix the patient is currently taking. I suspected is either 20 or 40 mg a day. Patient is fluid overloaded and I suspect that this is the cause of his symptoms. He also has an elevation in his BUN and creatinine a decrease in his GFR. I did discuss the case with his community case manager to recommended diuresis. He stated that we could not treat the tachycardia until the patient is probably diuresed. He was given 40 mg of Lasix IV. I discussed the case with Dr. Shepard who is on-call for the patient's primary provider who stated that she felt the patient would be best off at a facility that has Nephrology and Cardiology available 25/03 which is not available at our facility. I then discussed the case with Dr. Minaya internal medicine at [facility] who accepts the patient in transport. Patient is stable for transport. I discussed the transfer with him and he expressed understanding. Feel that we should hold on nitro given his lack of respiratory symptoms and his systolic blood pressure of 110's. Patient does not need BiPAP. Discharge Plan Departure Patient Disposition: [facility] Clinical Impression: Tachycardia, CHF (congestive heart failure), Acute kidney injury, Orthopnea Prescriptions: No Action ASCORBIC ACID (VITAMIN C) 100 mg PO Q DAY Qty: 0 RF: 0 insulin glargine [Lantus U-100 Insulin] 100 UNIT/1 ML solution 8 unit SQ HS Qty: 0 RF: 0 simvastatin 10 MG tablet 10 mg PO HS Qty: 0 RF: 0 aspirin 81 MG tablet,delayed release (DR/EC) 81 mg PO QDAY Qty: 0 RF: 0 tamsulosin [Flomax] 0.4 MG capsule,extended release 24hr 0.4 mg PO QDAY Qty: 0 RF: 0 folic acid 0.8 MG tablet 1 mg PO QDAY Qty: 0 RF: 0 FERROUS SULFATE 325 mg PO BID Qty: 0 RF: 0 lisinopril 20 MG tablet 30 mg PO QDAY Qty: 0 RF: 0 metformin [Glucophage XR] 500 MG tablet extended release 24 hr 1,000 mg PO BID Qty: 0 RF: 0 CA PANTOTHENATE/FOLIC ACID/VIT (MULTIVITAMIN) 1 tab PO QDAY Qty: 0 RF: 0 CHOLECALCIFEROL (VITAMIN D) 2,000 iu PO BID Qty: 0 RF: 0 CYANOCOBALAMIN (VITAMIN B-12) (Vitamin B-12) 1,000 mcg PO Q DAY Qty: 0 RF: 0 VITAMIN E (#HOLGUIN-E) 200 iu PO Q DAY Qty: 0 RF: 0 glipizide 5 mg tablet 10 mg PO BID RF: 0 magnesium citrate 100 mg tablet 100 mg PO DAILY RF: 0 Referrals: Alee Castillo MD [Primary Care Provider] -
[2020-03-17 15:57] LABS: Procalcitonin < 0.05 ng/mL (<0.5)
[2020-03-17] MEDS: FUROSEMIDE 40 MG/4 ML VIAL IV (16:45)
[2020-03-17 20:03] LABS: COVID19 -Nasal RAPID Negative (Negative)
--- NOTE | 2020-03-17 21:01 | PC.NURSE ---
Attempted to call report to [facility],was told that the RN would call me back
== END 2020-03-17 20:45 | disposition short-term general hospital (02) ==
PROVIDERS: Emergency Provider Emergency Medicine; PCP Family Medicine
DX: R00.0 Tachycardia, unspecified (principal); I50.9 Heart failure, unspecified; N17.9 Acute kidney failure, unspecified; R06.01 Orthopnea; R60.9 Edema, unspecified
CPT/HCPCS: 36415; 71045; 80053; 82550; 83690; 83880; 84145; 84484; 85025; 85610; 85730; 87635; 93005; 93010; 96374; 99284; J1940